=== PATIENT | female | born 1985 | race Caucasian/White ===

== ENCOUNTER 2018-03-13 11:59 | Outpatient (CLI) | payer MEDICAID ==
[2018-03-13 12:40] LABS: APPEARANCE,URINE CLOUDY; BILIRUBIN,URINE NEGATIVE (NEGATIVE); COLOR,URINE YELLOW; GLUCOSE, URINE NEGATIVE (NEGATIVE); KETONES,URINE NEGATIVE (NEGATIVE); LEUKOCYTE ESTERASE,URINE SMALL (NEGATIVE); NITRITE,URINE NEGATIVE (NEGATIVE); PROTEIN,URINE NEGATIVE (NEGATIVE); URINE SPECIFIC GRAVITY 1.013; UROBILINOGEN,URINE NEGATIVE mg/dL (<2.0)
[2018-03-13 13:09] LABS: URINE AMPHETAMINES SCREEN NEGATIVE; URINE BARBITURATES SCREEN NEGATIVE; URINE BENZODIAZEPINES SCREEN NEGATIVE; URINE COCAINE SCREEN NEGATIVE; URINE MARIJUANA (THC) SCREEN NEGATIVE; URINE METHADONE SCREEN NEGATIVE; URINE PHENCYCLIDINE SCREEN NEGATIVE
== END 2018-03-13 13:39 | disposition home or self-care (01) ==
LOC: LC 11:59
PROVIDERS: ATTEND Obstetrics & Gynecology
PROC: 4A1HXCZ Monitoring of Products of Conception, Cardiac Rate, External Approach (ICD-10-PCS; principal; 2018-03-13)
DX: O47.03 False labor before 37 completed weeks of gestation, third trimester (principal); Z3A.28 28 weeks gestation of pregnancy
CPT/HCPCS: 80307; 81001

== ENCOUNTER 2018-05-06 07:58 | Outpatient (CLI) | payer MEDICAID ==
[2018-05-06 08:34] LABS: APPEARANCE,URINE SLIGHTLY-CLOUDY; BILIRUBIN,URINE NEGATIVE (NEGATIVE); COLOR,URINE YELLOW; GLUCOSE, URINE NEGATIVE (NEGATIVE); KETONES,URINE NEGATIVE (NEGATIVE); LEUKOCYTE ESTERASE,URINE TRACE (NEGATIVE); NITRITE,URINE NEGATIVE (NEGATIVE); PROTEIN,URINE NEGATIVE (NEGATIVE); URINE SPECIFIC GRAVITY 1.011; UROBILINOGEN,URINE NEGATIVE mg/dL (<2.0)
[2018-05-06 08:53] LABS: URINE AMPHETAMINES SCREEN NEGATIVE; URINE BARBITURATES SCREEN NEGATIVE; URINE BENZODIAZEPINES SCREEN NEGATIVE; URINE COCAINE SCREEN NEGATIVE; URINE MARIJUANA (THC) SCREEN NEGATIVE; URINE METHADONE SCREEN NEGATIVE; URINE PHENCYCLIDINE SCREEN NEGATIVE
== END 2018-05-06 09:00 | disposition home or self-care (01) ==
LOC: LC 07:58
PROVIDERS: ATTEND Obstetrics & Gynecology
PROC: 4A1HXCZ Monitoring of Products of Conception, Cardiac Rate, External Approach (ICD-10-PCS; principal; 2018-05-06)
DX: Z34.93 Encounter for supervision of normal pregnancy, unspecified, third trimester (principal)
CPT/HCPCS: 59025; 80307; 81005; 84112

== ENCOUNTER 2018-05-31 06:26 | Inpatient (IN) | payer MEDICAID ==
[2018-05-31] MEDS ORDERED: OXYTOCIN/NORMAL SALINE 20 UNIT/1,000 ML RTUINJ IV PRN ×2 (06:40→16:29)
[2018-05-31] MEDS ORDERED: RINGERS SOLUTION,LACTATED 300 ML IV ONE (06:40)
[2018-05-31] MEDS ORDERED: RINGERS SOLUTION,LACTATED 1,000 ML IV PRN (06:40)
[2018-05-31 07:20] LABS: APPEARANCE,URINE CLOUDY; BILIRUBIN,URINE NEGATIVE (NEGATIVE); COLOR,URINE YELLOW; GLUCOSE, URINE NEGATIVE (NEGATIVE); KETONES,URINE NEGATIVE (NEGATIVE); LEUKOCYTE ESTERASE,URINE TRACE (NEGATIVE); NITRITE,URINE NEGATIVE (NEGATIVE); PROTEIN,URINE NEGATIVE (NEGATIVE); URINE SPECIFIC GRAVITY 1.014; UROBILINOGEN,URINE NEGATIVE mg/dL (<2.0)
--- NOTE | 2018-05-31 07:31 | Admission Physical ---
Datetime Report Generated by CPN: 05/31/2018 07:31 CURRENT ADMISSION Chief Complaint: Scheduled Induction of Labor Indication for Induction: Other Admit Impression : Term, Intrauterine ; Intact Membranes; Induction of Labor Admit Plan: Admit to Unit; Initiate Labor Induction Protocol ALLERGIES Medication Allergies: Yes Medication Allergies: clavulanic acid (05/31/2018); amoxicillin (05/31/2018) Latex: No Latex Allergies Food Allergies: N/A Environmental Allergies: N/A OBSTETRICAL HISTORY EDC: 06/03/2018 00:00 : 5 Para: 2 Term: 2 : 0 SAB: 2 IAB: 0 Ectopic: 0 Livin Cesareans: 0 VBACs: 0 (Annotations: Data stored by CPN on behalf of user) Multiple Births: 0 Gestational Diabetes: No Rh Sensitization: No Incompetent Cervix: No JANA: No Infertility: No ART Treatment: No Uterine Anomaly: No IUGR: No Hx Previous C/S: No Macrosomia: No Hx Loss/Stillborn: No PIH: Yes Hx : No Placenta Previa/Abruption: Yes Depression/PP Depression: No PTL/PROM: No Post Hemorrhage: No Current Procedures: Ultrasound; NST Obstetrical History Comments: G1 - 2004, , 41.5 weeks, previa G2 - 2006, Etopic - DNC at 16 weeks G3 - 2009, , 38 weeks with pre-e G4 - 2011, SAB, 12 weeks G5 - Current SEE RECORDS Alcohol: No Marijuana : No Cocaine: No Other Illicit Drugs: No Cigarettes: Former Smoker. [id number] MEDICAL HISTORY Diabetes: No Blood Transfusion: No Pulmonary Disease (Asthma, TB): No Breast Disease: Yes Hypertension: No Learning Support Specialist Surgery: No Heart Disease: No Hosp/Surgery: No Autoimmune Disorder: No Anesthetic Complications: No Kidney Disease: No Abnormal Pap Smear: Yes Neuro/Epilepsy: No Psychiatric Disorders: No Other Medical Diseases: No Hepatitis/Liver Disease: No Significant Family History: No Varicosities/Phlebitis: No Trauma/Violence : No Thyroid Dysfunction: No Medical History Comments: Abnormal Pap Jun 2017, colscopy Jul 2017, cyst ruptures on ovaries, Breast reduction surgery with saline implants in 2009 INFECTIOUS HISTORY Gonorrhea: No Genital Herpes: No Chlamydia: No Tuberculosis: No Syphilis: No Hepatitis: No HIV/AIDS Exposure: No Rash or Viral Illness: No HPV: Yes Infectious History Comments: HPV in Jun 2017 PHYSICAL EXAM General: Normal HEENT: Normal Neurologic: Normal Thyroid: Normal Heart: Normal Lungs: Normal Breast: Normal Back: Normal Abdomen: Normal Genitourinary Exam: Normal Extremities: Normal DTRs: Normal Pelvic Type: Adequate Vital Signs: Reviewed; Within Normal Limits VAGINAL EXAM Dilatation: 4 Effacement: 50 Station: -2 MEMBRANES Pooling: Negative Membranes: Intact FETUS A EGA: 39.4 Monitoring: External US FHR- Baseline: 130 Variability: Moderate 6-25bpm Accelerations: 15X15 Decelerations: None FHR Category: Category I Estimated Weight (gm): 3500 Presentation: Vertex PLANS FOR LABOR AND DELIVERY Labor and Delivery: None Pain Management: Epidural Feeding Preference: Formula Benefit of Breast Feed Discussed: Yes INFORMED CONSENT Signature: with User ID: [email or web address]
[2018-05-31 07:40] LABS: URINE AMPHETAMINES SCREEN NEGATIVE; URINE BARBITURATES SCREEN NEGATIVE; URINE COCAINE SCREEN NEGATIVE; URINE MARIJUANA (THC) SCREEN NEGATIVE; URINE METHADONE SCREEN NEGATIVE; URINE PHENCYCLIDINE SCREEN NEGATIVE
[2018-05-31] MEDS ORDERED: LIDOCAINE 1% INJ-PF (10 MG/ML) 30 ML SDV ONE (07:50)
[2018-05-31] MEDS ORDERED: MISOPROSTOL 0.2 MG TABLET ONE (07:50)
[2018-05-31] MEDS ORDERED: EPHEDRINE SULFATE INJ 50 MG/1 ML AMPULE ONE (07:50)
[2018-05-31] MEDS ORDERED: OXYTOCIN/NORMAL SALINE 20 UNIT/1,000 ML RTUINJ ONE (07:50)
[2018-05-31] MEDS ORDERED: FENTANYL/BUPIVACAINE/NS/PF 300 MCG/150 ML RTUINJ EPI ONE (07:50)
[2018-05-31] MEDS ORDERED: BUPIVACAINE HCL 0.25 % INJ/PF (2.5 MG/1 ML) 30 ML VIAL ONE (07:50)
[2018-05-31 07:56] LABS: URINE BENZODIAZEPINES SCREEN NEGATIVE
[2018-05-31 08:08] LABS: ABSOLUTE EOSINOPHILS # (AUTO) 0.1 10^3/uL (0.0-0.6); ABSOLUTE LYMPHOCYTES (AUTO) 1.6 10^3/uL (0.5-4.7); ABSOLUTE MONOCYTES (AUTO) 0.4 10^3/uL (0.1-1.4); ABSOLUTE NEUT (AUTO) 6.7 10^3/uL (1.7-8.2); BASOPHILS % (AUTO) 0.5 % (0-2); EOSINOPHILS % (AUTO) 1.2 % (0-6); HEMATOCRIT 31.6 % (36.0-47.0); LYMPHOCYTES % (AUTO) 18.5 % (13-45); MEAN CORPUSCULAR HEMOGLOBIN 31.4 pg (27.0-33.4); MEAN CORPUSCULAR HGB CONC 34.7 g/dL (32.0-36.0); MEAN CORPUSCULAR VOLUME 90 fl (80-97); MONOCYTES % (AUTO) 4.8 % (3-13); PLATELET COUNT 226 10^3/uL (150-450); RED CELL DISTRIBUTION WIDTH 13.7 % (11.5-14.0); TOTAL CELLS COUNTED % (AUTO) 100 %; WHITE BLOOD COUNT 8.9 10^3/uL (4.0-10.5)
--- NOTE | 2018-05-31 09:23 | L&D Progress Notes ---
PROGRESS NOTES Datetime Report Generated by CPN: 05/31/2018 09:23 PROGRESS NOTE Impression: Reassuring Heart Rate Plan: Continue Present Management; Induction Informed Consent Obtained: Induction of Labor Vital Signs : Reviewed; Within Normal Limits Comment: Cat 1 strip, irreg uc's, GBS neg Plan: Pitocin, epidural if needed VAGINAL EXAM Dilatation: 4 Effacement: 50 Station: -2 LAST VAGINAL EXAM-NURSING Dilitation: 4.0 Effacement: 50 Station: -2 Contractions: Pt denies feeling ctx's, abdomen soft upon palpation. MEMBRANES Pooling: Negative Membranes: Intact FETUS A Monitoring: External US Variability: Moderate 6-25bpm Accelerations: 15X15 Decelerations: None : 39.4 Estimated Weight (gm): 3500 Presentation: Vertex SIGNATURE SIGNATURE: [id number];[id number] SIGNATURE: [id number] Assignment: Sebastián Davis MD Signature: with User ID: Delisa : with User ID: Delisa
--- NOTE | 2018-05-31 11:52 | L&D Progress Notes ---
PROGRESS NOTES Datetime Report Generated by CPN: 05/31/2018 11:52 PROGRESS NOTE Impression: Reassuring Heart Rate Procedures: Artificial ROM Plan: Continue Present Management; Induction Informed Consent Obtained: Vaginal Delivery Vital Signs : Reviewed; Within Normal Limits Comment: VE= 4/80/vtx/0, AROM, scant clear fluid, requesting epidural, hsb at BS, Cat 1 strip, uc's q 3 min VAGINAL EXAM Dilitation: 4.0 Effacement: 80 Station: 0 FETUS A Monitoring: External US Variability: Moderate 6-25bpm Accelerations: 15X15 FHR Category: Category I FETUS C SIGNATURE: [id number];[id number] Assignment: Sebastián Davis MD Signature: with User ID: [email or web address] : with User ID: Delisa
--- NOTE | 2018-05-31 15:01 | L&D Progress Notes ---
PROGRESS NOTES Datetime Report Generated by CPN: 05/31/2018 15:00 PROGRESS NOTE Impression: Normal Progression of Labor; Reassuring Heart Rate Plan: Continue Present Management; Anticipate Vaginal Delivery Vital Signs : Reviewed; Within Normal Limits Comment: Comfortable with epidural, Cat 1 strip, UC's q 2-3 x60 sec FETUS A Monitoring: External US Variability: Moderate 6-25bpm Accelerations: 15X15 Decelerations: None FHR Category: Category I FETUS C SIGNATURE: [id number];[id number] Assignment: Sebastián Davis MD Signature: with User ID: Delisa : with User ID: Delisa
--- NOTE | 2018-05-31 15:25 | L&D Progress Notes ---
PROGRESS NOTES Datetime Report Generated by CPN: 05/31/2018 15:25 PROGRESS NOTE Plan: Continue Present Management; Induction Comment: 8cm, Cat 1 strip, feeling pressure, anticipate VAGINAL EXAM Dilitation: 8.0 Effacement: 90 Station: 0 FETUS C SIGNATURE: [id number];[id number] Assignment: Sebastián Davis MD Signature: with User ID: [email or web address] : with User ID: Delisa
[2018-05-31] MEDS ORDERED: ACETAMINOPHEN WITH CODEINE #3 TABLET PO PRN (16:29)
[2018-05-31] MEDS ORDERED: DIPHENHYDRAMINE HCL 25 MG CAPSULE PO PRN (16:29)
[2018-05-31] MEDS ORDERED: MEASLES,MUMPS&RUBELLA VACC/PF 0.5 ML VIAL SUBCUT PRN (16:29)
[2018-05-31] MEDS ORDERED: PROMETHAZINE HCL 25 MG SUPP.RECT PR PRN (16:29)
[2018-05-31] MEDS ORDERED: MAGNESIUM HYDROXIDE SUSP 30 ML UDCUP PO PRN (16:29)
[2018-05-31] MEDS ORDERED: BENZOCAINE/MENTHOL AEROSOL SPRAY 56 ML TOP PRN (16:29)
[2018-05-31] MEDS ORDERED: PROMETHAZINE HCL 25 MG TABLET PO PRN (16:29)
[2018-05-31] MEDS ORDERED: GLYCERIN/WITCH HAZEL LEAF 1 EACH MED..PAD TP PRN (16:29)
[2018-05-31] MEDS ORDERED: DIPH/PERTUSS(ACELL)/TETANUS VAC/PF 0.5 ML SYR (>=10YO) IM PRN (16:29)
[2018-05-31] MEDS ORDERED: PSEUDOEPHEDRINE HCL 30 MG TABLET PO PRN (16:29)
[2018-05-31] MEDS ORDERED: DIBUCAINE 1% OINTMENT 28 GM TP PRN (16:29)
[2018-05-31] MEDS ORDERED: ACETAMINOPHEN 650 MG SUPP.RECT PR PRN (16:29)
[2018-05-31] MEDS ORDERED: PROMETHAZINE HCL INJ 25 MG/1 ML VIAL IV PRN (16:29)
[2018-05-31] MEDS ORDERED: NA PHOS,M-B/NA PHOS,DI-BA (ADULT) 133 ML ENEMA PR PRN (16:29)
--- NOTE | 2018-05-31 17:59 | Delivery Summary ---
Del Sum A-C Datetime Report Generated by CPN: 05/31/2018 17:59 DELIVERY PERSONNEL DELIVERY PERSONNEL: [id number] Delivery Doctor:: Esther Roberts CNM Labor and Delivery Nurse:: Zeenat Corey RNhostel manager Nurse:: KAROLINA Grace Student Observers:: Kim Coronel RN resident Line Prep Cook/HEAT TREATER HELPER: Yuridia Santana CNA II MATERNAL INFORMATION Delivery Anesthesia: Epidural Medications After Delivery: Pitocin Bolus-Please Comment Meds After Delivery Comment: Pitocin Maternal Complications: None Provider Comments: viable male in direct OP position, tight nuchal cord, unable to reduce before delivery. baby placed on mothers abd for bonding, hsb at bedside, cord clamped and cut after 2 minutes, spont del of grossly normal intact large placenta, vaginal lac repaired with 2-0 chromic without difficulty, FFFM, baby and mom remain in recovery in stable condition, plans to bottle feed LABOR SUMMARY EDC: 06/03/2018 00:00 No. Babies in Womb: 1 Attempted: No Labor Anesthesia: Epidural LABOR INFORMATION Reason for Induction: Other Reason for Induction- Other: leg numbness Onset of Labor: 05/31/2018 11:45 Complete Dilatation: 05/31/2018 15:42 Oxytocin: Induction Group B Beta Strep: Negative Steroids Given: None Reason Steroids Not Administered: Not Applicable MEMBRANES Membranes Rupture Method: Artificial Rupture of Membranes: 05/31/2018 11:45 Length of Rupture (hr): 4.25 Amniotic Fluid Color: Clear Amniotic Fluid Amount: Small Amniotic Fluid Odor: Normal STAGES OF LABOR Stage 1 hr: 3 Stage 1 min: 57 Stage 2 hr: 0 Stage 2 min: 18 Stage 3 hr: 0 Stage 3 min: 5 Total Time in Labor hr: 4 Total Time in Labor min: 20 VAGINAL DELIVERY Episiotomy: None Laceration #1: Vaginal Laceration Extension #1: First Degree Laceration Repair: Yes Laceration Repair Note: 2-0 chromic Sponge Count Correct: N/A CSECTION DELIVERY Primary Indication: N/A Secondary Indication: N/A CSection Incidence: N/A Labor: N/A Elective: N/A CSection Incision: N/A BABY A INFORMATION Infant Delivery Date/Time: 05/31/2018 16:00 Method of Delivery: Vaginal Born in Route : No : N/A Forceps: N/A Vacuum Extraction: N/A Shoulder Dystocia : No PRESENTATION/POSITION BABY A Presentation: Cephalic Cephalic Presentation: Vertex Vertex Position: Left Occipital Posterior Breech Presentation: N/A PLACENTA INFORMATION BABY A Placenta Delivery Time : 05/31/2018 16:05 Placenta Method of Delivery: Spontaneous Placenta Status: Delivered SCORES BABY A Heart Rate 1 min: >100 bpm Resp Effort 1 min: Good Cry Reflex Irritability 1 min: Cough or Sneeze or Pulls Away Muscle Tone 1 min: Active Motion Color 1 min: Body [place], Extremities Blue Resuscitation Effort 1 min: N/A SCORE 1 MIN: 9 Heart Rate 5 min: >100 bpm Resp Effort 5 min: Good Cry Reflex Irritability 5 min: Cough or Sneeze or Pulls Away Muscle Tone 5 min: Active Motion Color 5 min: Body [place], Extremities Blue Resuscitation Effort 5 min: N/A SCORE 5 MIN: 9 INFORMATION BABY A Gestational Age at Delivery: 39.4 Gestational Status: Full Term- 39- 40.6 Weeks Infant Outcome : Liveborn Condition : Stable Infant Sex: Male IDENTIFICATION BABY A Infant Verification Date/Time: 05/31/2018 16:32 ID Band Number: [id number] Mother's Name Verified: Yes Infant RN Verifying : C Corey RN Additional Verifying Personnel: S Laporte RNC WEIGHT/LENGTH BABY A Birthweight (gm): 3800 Weight (lb): 8 Infant Weight (oz): 6 Length (in): 21.75 Infant Length (cm): 55.25 CORD INFORMATION BABY A No. Cord Vessels: 3 Nuchal Cord : N/A Cord Blood Taken: Yes-For Eval (Mom's Blood Type - or O+) Suction: None ASSESSMENT BABY A Complications: None Physical Findings at Delivery: Within Normal Limits Respirations: Appears Normal Skin to Skin: No Staff Radiologist/ALS Called : No Infant Care By: SFranco Olivo, RN Transferred To: Remains with Mother BABY B INFORMATION : N/A
--- NOTE | 2018-05-31 18:00 | Warning Signs in Babies ---
VOD Warning Signs Datetime Report Generated by [facility]: 05/31/2018 18:00 VOD#608 -Warning Signs in Babies: Needs to be viewed. (03/13/2018 12:24:Zeenat Cm RN)
[2018-05-31] MEDS: IBUPROFEN 800 MG TABLET PO SCH (21:06)
[2018-05-31] MEDS ORDERED: FAMOTIDINE 20 MG TABLET PO SCH (22:00)
[2018-05-31] MEDS: ACETAMINOPHEN WITH CODEINE #3 TABLET PO PRN (22:18)
[2018-06-01] MEDS: ACETAMINOPHEN WITH CODEINE #3 TABLET PO PRN ×4 (02:19→22:27)
[2018-06-01] MEDS: IBUPROFEN 800 MG TABLET PO SCH ×3 (05:53→22:27)
[2018-06-01 07:43] LABS: HEMATOCRIT 27.7 % (36.0-47.0); HEMOGLOBIN 9.6 g/dL (12.0-15.5); MEAN CORPUSCULAR HEMOGLOBIN 31.3 pg (27.0-33.4); MEAN CORPUSCULAR HGB CONC 34.5 g/dL (32.0-36.0); MEAN CORPUSCULAR VOLUME 91 fl (80-97); PLATELET COUNT 186 10^3/uL (150-450); RED BLOOD COUNT 3.06 10^6/uL (3.72-5.28); RED CELL DISTRIBUTION WIDTH 13.7 % (11.5-14.0); WHITE BLOOD COUNT 9.5 10^3/uL (4.0-10.5)
--- NOTE | 2018-06-01 10:03 | PDOC PROGRESS REPORT ---
Subjective-OB Progress Note for:: 06/01/18 Physical Exam (OB) Vital Signs: Temp Pulse Resp BP Pulse Ox 97.8 F 57 L 16 103/55 L 99 06/01/18 07:50 06/01/18 07:50 06/01/18 07:50 06/01/18 07:50 06/01/18 07:50 Intake & Output 05/31/18 06/01/18 06/02/18 06:59 06:59 06:59 Intake Total 240 Balance 240 Weight 114.8 kg - PIH/Pre-Eclampsia Clonus: Negative Headache: Absent Epigastric Pain: No Visual Changes: No - Lochia Lochia Amount: Small 10-25 ml Lochia Color: Rubra/Red - Abdomen Description: Soft, Round Hernia Present: No Bowel Sounds: Normoactive Flatus Presence: Present Stool: No Fundal Description: Firm Fundal Height: u/u - u/2 Objective-Diagnostic Laboratory: 06/01/18 07:10 06/01/18 07:10 WBC 9.5 RBC 3.06 L Hgb 9.6 L Hct 27.7 L MCV 91 MCH 31.3 MCHC 34.5 RDW 13.7 Plt Count 186
[2018-06-01] MEDS: SENNOSIDES/DOCUSATE 8.6-50 MG 1 EACH TABLET PO SCH (11:40)
[2018-06-01] MEDS: FERROUS SULFATE 325 MG TABLET PO SCH ×3 (11:40→17:53)
[2018-06-01] MEDS: DOCUSATE SODIUM 100 MG CAPSULE PO SCH ×3 (11:40→17:53)
[2018-06-01] MEDS: PRENATAL VITAMIN W DHA CAPSULE PO SCH (11:40)
[2018-06-02] MEDS: IBUPROFEN 800 MG TABLET PO SCH (06:28)
[2018-06-02] MEDS: ACETAMINOPHEN WITH CODEINE #3 TABLET PO PRN (06:28)
[2018-06-02 08:36] VITALS: BP 113/61
[2018-06-02] MEDS: DOCUSATE SODIUM 100 MG CAPSULE PO SCH (09:16)
[2018-06-02] MEDS: PRENATAL VITAMIN W DHA CAPSULE PO SCH (09:16)
[2018-06-02] MEDS: FERROUS SULFATE 325 MG TABLET PO SCH (09:16)
[2018-06-02] MEDS: SENNOSIDES/DOCUSATE 8.6-50 MG 1 EACH TABLET PO SCH (09:16)
--- NOTE | 2018-06-02 09:42 | PDOC PROGRESS REPORT ---
Subjective-OB Progress Note for:: 06/02/18 Subjective: Doing well, ready to go home Physical Exam (OB) Vital Signs: Temp Pulse Resp BP Pulse Ox 98.5 F 61 16 113/61 97 06/02/18 07:45 06/02/18 07:45 06/02/18 07:45 06/02/18 07:45 06/02/18 07:45 Intake & Output 06/01/18 06/02/18 06/03/18 06:59 06:59 06:59 Intake Total 240 Balance 240 - PIH/Pre-Eclampsia DTR's: 2 + Clonus: Negative Headache: Absent Epigastric Pain: No Visual Changes: No - Lochia Lochia Amount: Small 10-25 ml Lochia Color: Rubra/Red - Abdomen Description: Soft, Round Hernia Present: No Fundal Description: Firm, Midline Fundal Height: u/u - u/2 Objective-Diagnostic Laboratory: 06/01/18 07:10 Assessment and Plan(PN) - Assessment and Plan (1) Qualifiers: Weeks of gestation: 39 weeks Qualified Code(s): Z3A.39 - 39 weeks gestation of Is this a current diagnosis for this admission?: Yes (2) Delivery normal Is this a current diagnosis for this admission?: Yes - Time Spent with Patient Time with patient: Less than 15 minutes Medications reviewed and adjusted accordingly: Yes - Disposition Anticipated Discharge: Home Within: within 24 hours
--- NOTE | 2018-06-02 09:47 | PDOC DISCHARGE SUMMARY ---
Final Diagnosis Discharge Date: 06/02/18 - Final Diagnosis (1) Is this a current diagnosis for this admission?: Yes (2) Delivery normal Is this a current diagnosis for this admission?: Yes Discharge Data - Discharge Medication Home Medications: No122/Iron/Folic Acid [ Multi Tablet] 1 tab PO DAILY 03/13/18 Ferrous Sulfate [Feosol 325 mg Tablet] 325 mg PO BID tablet 06/02/18 Vit/Dha [ Multi + Dha Capsule] 1 cap PO DAILY capsule 06/02/18 Gestational Age: 39.4 Reason(s) for Admission: Induction of Labor Procedures: NST, Ultrasound Intrapartum Procedure(s): Spontaneous Vaginal Delivery Complication(s): Laceration-Vaginal Laceration-Degree: 1st - Diagnosis Test Laboratory: Temp Pulse Resp BP Pulse Ox 98.5 F 61 16 113/61 97 06/02/18 07:45 06/02/18 07:45 06/02/18 07:45 06/02/18 07:45 06/02/18 07:45 05/31/18 05/31/18 06/01/18 06:45 07:21 07:10 RBC 3.50 L 3.06 L Hgb 11.0 L 9.6 L Hct 31.6 L 27.7 L Urine Opiates Screen NEGATIVE - Discharge information/Instructions Discharge Activity: Activity As Tolerated, Pelvic Rest Discharge Diet: As Tolerated, Regular Disposition: HOME, SELF-CARE Follow up with: [facility] in: 3, Weeks
== END 2018-06-02 13:03 | disposition home or self-care (01) | DRG 807 ==
LOC: LR 06:26 → 2S 18:44
PROVIDERS: ADMIT Obstetrics & Gynecology; ATTEND Obstetrics & Gynecology
PROC: 0HQ9XZZ Repair Perineum Skin, External Approach (ICD-10-PCS; principal; 2018-05-31)
PROC: 10E0XZZ Delivery of Products of Conception, External Approach (ICD-10-PCS; 2018-05-31)
PROC: 4A1HXCZ Monitoring of Products of Conception, Cardiac Rate, External Approach (ICD-10-PCS; 2018-05-31)
DX: O69.1XX0 Labor and delivery complicated by cord around neck, with compression, not applicable or unspecified (principal); Z37.0 Single live birth; O70.0 First degree perineal laceration during delivery; Z3A.39 39 weeks gestation of pregnancy; Z87.891 Personal history of nicotine dependence
CPT/HCPCS: 36415; 80307; 81005; 85025; 85027; 86592; 86850; 86900; 86901; J2590; J3010; J3490